=== PATIENT | male | born 1960 ===

== ENCOUNTER 2024-10-10 08:26 | Outpatient (AMB) | payer MEDICAID, SELFPAY ==
--- NOTE | 2024-10-10 08:27 | A.OFFVIS_ITS ---
Vital Signs 3 10/10/24 08:33 Height 6 ft 3 in Weight 218 lb 4 oz BMI 27.3 BP 113/63 Blood Pressure Location Lt brachial Position Sitting Pulse 97 Pulse Source Pulse Oximeter Pulse Oximetry (%) 97 Oxygen Delivery Method Room Air Intake Visit Reasons: Spinal Stenosis lumbar reg Intake Note: Pain today 03/14 It Sales Executive Required: Yes It Sales Executive Language: Addiction Nurse Name: Lynnette #[id number] Information Interpreted: non-clinical & clinical Accompanied by: Self / Same As Patient Allergies ibuprofen Adverse Reaction (Verified 10/10/24 08:31) Gastrointestinal Upset HPI HPI Spinal Stenosis lumbar reg: Details: The patient is a 63 year old Serbian speaking male presenting with back pain with symptoms primarily localized to the right side. Over the past year, he has experienced a progressively worsening electric shock-like pain that began after attempting physical therapy 3 months ago, reported as ineffective, and had to be discontinued. The condition is characterized by radiation to the right leg, causing numbness and spasms. It intensifies during certain physical activities, including lifting, long periods of sitting, changing positions, and driving, but does not affect the left side. Lumbar spine MRI showed degenerative changes of the lumbar spine and a small interiorly projecting extrusion at L4-L5 and mild-moderate left foraminal stenosis at L5-S1. Imaging views are not available for review today, patient completed MRI at [facility]. Past management efforts have seen limited success due to medication-induced side effects and the patient?s reluctance to try recommended injections due to familial experience. - Onset: Approximately one year ago. - Quality & Character: Electric shock-like, pinching, stabbing, aching, shooting, burning, sharp - Location: Lower back, radiating to the right leg. - Exacerbating Factors: Lifting, climbing, sitting for long periods, driving. - Relieving Factors: Tramadol (helps with pain and sleep). - Activities Interference: Driving, sleeping, physical stability. - Affect: Pain impacts stability and sleep, causing difficulty in daily functioning. - Analgesia: Gabapentin, Tylenol and tramadol (short one time script 04/14/24) have been used, with tramadol aiding sleep and pain reduction. - Adverse Effects: GI upset from NSAIDs and drowsiness from tramadol are reported. - Activities of Daily Living: Pain hinders activities like driving, prolonged sitting, changing from sitting to standing, and causes sleep disturbances. - Aberrant Drug Related Behaviors: No evidence of misuse, but cautious use of tramadol due to familial concerns. [facility] Medical History Smoker Primary insomnia COPD (chronic obstructive pulmonary disease) Mild intermittent asthma Chronic low back pain Arthropathy Social History Alcohol intake: never Patient Tobacco Use Status: Current everyday Tobacco user Tobacco use type: Cigarette Cigarette Packs Per Day: 0.5 Review of Systems Const Details: - Musculoskeletal: Reports radiating back pain to the right leg, numbness and pain in thigh. - Neurological: Reports right leg spasms and numbness. Denies bladder/bowel dysfunction or saddle anesthesia. - Gastrointestinal: Denies current issues except historical NSAID side effects. All systems reviewed & are unremarkable except as noted in HPI and below Physical Exam Vital Signs: Last Vital Signs Pulse 97 10/10/24 08:33 BP 113/63 10/10/24 08:33 Pulse Ox 97 10/10/24 08:33 Oxygen Delivery Method Room Air 10/10/24 08:33 BMI result Body Mass Index 27.3 General: Appears afebrile. Alert and oriented. Mood and affect appropriate. Follows and participates in conversation appropriately. Respiratory effort is unlabored. No cough. Able to transition from sit to stand unassisted. Ambulates with bilaterally normal heel strike and toe off. General: Yes no CVA tenderness Back/Spine/Pelvis Other: Lumbar ROM limited due to pain. Antalgic gait with limping due to right leg pain. Demonstrates 5/5 left and 4/5 right strength of quadriceps bilaterally as well as flexion/dorsiflexion of bilateral feet against resistance. 2+ pedal pulses bilaterally. Straight leg rise with dorsiflexion negative bilaterally. Reflexes WNL, sensation intact to light touch. Facet loading test positive bilaterally. Sofia sign, Miguel?s, Gaenslen, Pelvic compression and Stinchfield tests are positive on the right, equivocal on the left. Mild- moderate groin pain with right hip external rotations. Moderate TTP in the lateral and anterior aspects of right hip. Significant paraspinals tenderness mostly on the right/left side, thoracic/mid and lower back. Valsalva maneuver is negative. Back: no CVA tenderness Cervical Spine: normal cervical lordosis, cervical ROM normal and No Cervical spine tenderness Thoracic/Lumbar Spine: thoracic and lumbar spine normal to inspection, No Thoracic/lumbar spine scar(s), Lasegue's sign negative, straight leg raise negative bilaterally, pain with thoraco-lumbar ROM, paraspinal muscle tenderness on the right greater than left, thoraco-lumbar ROM limited, No thoracic spinal tenderness and lumbar spinal tenderness (L3-S1) Pelvis: buttock tenderness on the right and no sciatic notch tenderness Sacroiliac joints: bilaterally (right>left) tender to palpation Results Reviewed Results Reviewed: Assessment & Plan Assessment & Plan (1) Sacroiliac joint pain: Code(s): M53.3 - Sacrococcygeal disorders, not elsewhere classified Category: Medical (2) Right hip pain: Code(s): M25.551 - Pain in right hip Category: Medical (3) Chronic low back pain: Code(s): M54.50 - Low back pain, unspecified; G89.29 - Other chronic pain Category: Medical (4) Lumbosacral spondylosis: Code(s): M47.817 - Spondylosis without myelopathy or radiculopathy, lumbosacral region Category: Medical Plan Our plan involves further diagnostic evaluation of the sacroiliac and right hip regions, utilizing x-rays to determine the degree of arthritis, degenerative changes nd assess suitability for steroid vs diagnostic injections. For severe pain management, I prescribed tramadol cautiously, emphasizing non-dependent use and safety. We'll reassess once x-ray results are available, considering conservative management or possible interventional therapies based on findings. The patient was educated on opioid safety, including the use of Narcan as a precautionary measure. All questions and concerns have been answered and patient agreed with the plan. Follow up for xray Patient was informed and verbally consented to the use of an ambient scribe for clinic note documentation during this visit. Orders: Orders 2 XR hip RT w PEL1V Today M25.551 - Pain in right hip, M53.3 - Sacrococcygeal disorders, not elsewhere classified XR lumbar spine 4V min Today G89.29 - Other chronic pain, M47.817 - Spondylosis without myelopathy or radiculopathy, lumbosacral region, M54.50 - Low back pain, unspecified Medications: New 2 tramadol 50 mg PO BID 10 days PRN 20 tabs 0RF pain (scale score 7-10) G89.29 - Other chronic pain, M25.551 - Pain in right hip, M47.817 - Spondylosis without myelopathy or radiculopathy, lumbosacral region, M53.3 - Sacrococcygeal disorders, not elsewhere classified, M54.50 - Low back pain, unspecified naloxone 4 mg/actuation (Narcan) spray 1 dose into ONE nostril; alternate nostrils w each dose until help arrives 4 mg intranasal Q2M PRN 2 ea 0RF opioid overdose Patient Instructions: I engaged in a thorough discussion with the patient regarding his diagnosis of back pain with right leg symptoms, indicating possible right hip and sacroiliac joint involvement. I explained possible benefits and risks of hip and SI joint x-rays, and the limited use of tramadol to manage pain given his apprehension about injections influenced by familial advice. We covered opioid safety, reinforcing the importance of Narcan as a precaution. The patient was instructed on current pain management and future steps based on diagnostic findings. - Undergo hip and sacroiliac joint x-rays as scheduled. - Use tramadol only for severe pain or sleeplessness, never before driving. - Keep Narcan on hand when using tramadol and understand its emergency use. - Avoid any unnecessary physical strain or exacerbating activities for now. - Follow-up for a discussion of x-ray results and possible further intervention. - Contact us with any sudden changes in symptoms or concerns before the next visit. Coding Level of Care Code New Pt Level 4 (50167) Diagnoses Sacroiliac joint pain M53.3 Right hip pain M25.551 Chronic low back pain M54.50; G89.29 Lumbosacral spondylosis M47.817
[2024-10-10 08:33] VITALS: BP 113/63; PULSE 97; O2SAT 97; BMI 27.3
--- OUTSIDE RECORDS SUMMARY | 2024-10-10 08:48 | XMS_ITS | Encounter Summary ---
Author Organization [employer] Address [address] [place] [address] Care Team Providers Care New Order Clerk Name Role Phone Raissa Alanis MD Primary Care Provider [phone] Reason for Visit * Reason Onset Date Comments Letter for School/Work 05/04/2024 Encounter Details Date Type Department Care Team ([facility] Contact Info) Description 05/04/2024 Telephone [facility] MEDICINE [address] [place] [address] Raissa Alanis MD [address] [place], [place] [id number] Letter for School/Work Social History Tobacco Use Types Packs/Day Years Used Date Smoking Tobacco: Every Day Cigarettes 0.2 46.3 Started: 07/05/1978 Passive Smoke Exposure: Current Smokeless Tobacco: Never Depression Answer Date Recorded Patient Health Questionnaire-9 Score 0 12/18/2022 Housing Stability Answer Date Recorded What is your housing situation today? I have tootie garza 05/15/[address] you li ve. Do you have problems with any of the following? None of the above 05/15/2023 Food Insecurity Answer Date Recorded Within the past 12 months, y ou worried that your food would run out before you got money to buy more: Never True 05/15/2023 Within the past 12 months,th e food you bought just didn't last and you didn't have enough money to get more: Never True 05/2023 Transportation Answer Date Recorded In the past 12 months, has l ack of transportation kept you from medical appts, meetings, work or from getting things needed for daily living? No 05/15/2023 Utilities Answer Date Recorded In the past 12 months, has t he electric, gas, oil or water company threatened to shut off services in your home? No 05/15/2023 Depression Answer Date Recorded Patient Health Questionnaire-2 Score 0 12/18/2022 Sex and Gender Information Value Date Recorded Sex Assigned at Male 05/04/2022 10:24 AM EDT Legal Sex Male 10:24 AM EDT Gender Identity Male 06/05/2022 10:04 AM EST Sexual Orientation Straight 09/21/2022 10 :12 AM EDT documented as of this encounter Miscellaneous Notes * Telephone Encounter - Mariel Bolanos RN - 05/04/2024 1:48 PM EDT Pt walked in this afternoon requesting an appt to get clearance letter for employer. Pt states employer gave pt termination letter and is out of a job if clearance letter is not provided. Pt was out for LBP. Pt agrees to see PCP this afternoon after prior no show on 04/27/24 * Telephone Encounter - Pop Rodgers - 05/04/2024 12:09 PM EDT Tc from pt stating he needs a letter for work stating he is good to return to work. documented in this encounter Plan of Treatment Upcoming Encounters Date Type Department Care Team (Late st Contact Info) Description 12/20/2024 9:15 AM EDT Office Visit [facility] [address] [place] [address] Raissa Alanis MD [address] [place] [address] documented as of this encounter Visit Diagnoses Not on filedocumented in this encounter Additional Health Concerns Assessment Noted Time PHQ-9 Depression Total Score: 0 12/19/19 23 10:18 AM EDT documented as of this encounter Care Teams New Order Clerk Relationship Specialty Start Date End Date Raissa Alanis MD [address] [place] [address] PCP - General Family Medicine 12/30/17 documented as of this encounter
--- OUTSIDE RECORDS SUMMARY | 2024-10-10 08:48 | XMS_ITS | Encounter Summary ---
Author Organization [employer] Address [address] [place] [address] Care Team Providers Care Plant Machinist Name Role Phone Raissa Alanis MD Primary Care Provider [phone] Encounter Details Date Type Department Care Team ([facility] Contact Info) Description 04/10/2024 Orders Only [facility] [address], [place] [phone] Provider, MD Joanna Social History Tobacco Use Types Packs/Day Years [...] AM EDT documented as of this encounter Plan of Treatment Upcoming Encounters Date Type Department Care Team ([facility] st Contact Info) Description 12/20/2024 9:15 AM EDT Office Visit [facility] MED [facility] PEDS [address] [place] [address] Raissa Alanis MD [address] [place] [address] documented as of this encounter Procedures Procedure Name Priority Date/Time Associated Diagnosis Comments XR CERVICAL SPINE COMPLETE 4-5 VIEWS Routine 04/08/2024 3:40 PM EDT documented in this encounter Results * XR Cervical Spine Complete 4-5 Views (04/08/2024 3:40 PM EDT) Anatomical Region Laterality Modality Spine, C-spine Radiographic Iveth ging us Historical Provider MD AMAYA XR PROCEDURES Final R esult documented in this encounter Visit Diagnoses Not on filedocumented in this encounter Additional Health Concerns Assessment Noted Time PHQ-9 Depression Total Score: 0 12/19/19 23 10:18 AM EDT documented as of this encounter Care Teams Plant Machinist Relationship Specialty Start Date End Date Raissa Alanis MD [address] [place] [address] PCP - General Family Medicine 12/30/17 documented as of this encounter
--- OUTSIDE RECORDS SUMMARY | 2024-10-10 08:48 | XMS_ITS | Encounter Summary ---
Author Organization [facility] Address [address] [place] [address] Care Team Providers Care Wildland Fire Operations Specialist Name Role Phone Unavailable Primary Care Provider Unavailabl e Encounter Details Date Type Department Care Team (Latest Contact Info) Description 04/08/2024 9:00 AM EDT Hospital Encounter TH HISTORIC ENCOUNTERS [facility] CONVERSION ONLY Mariza Hdz MD [address] Other chronic pain Social History Tobacco Use Types Packs/Day Years Used Date Smoking Tobacco: Never Assessed Sex and Gender Information Value Date Recorded Sex Assigned at Not on file Legal Sex Male 2:15 PM EST Gender Identity Not on file Sexual Orientation Not on file documented as of this encounter Plan of Treatment Not on file documented as of this encounter Procedures Procedure Name Priority Date/Time Associated Diagnosis Comments CR SPINE CERVICAL MIN 4 VIEWS Routine 04/10/2024 7:49 AM EDT Other chronic pain documented in this encounter Results * CR SPINE CERVICAL MIN 4 VIEWS (04/10/2024 7:49 AM EDT) Anatomical Region Laterality Modality Radiographic Iveth ging 04/08/2024 9:08 AM EDT Narrative 04/10/2024 7:49 AM EDT [facility] Diagnostic Imaging Department [address] [place] [id number] Patient: ??INOCENCIO GAMBOA ?/Age/Sex: 1960 - 63 - M Unit#: ??[id number] ? Location/Status: ??SPDIGEN/REG CLI ? Mnemonic/Ordering Site: ??[facility]/SPDI Ordering Physician: ??MARIZA HDZ MD CR Spine Cervical Min 4 Views - 04/08/24 - 923 Report Status:Signed HISTORY: The patient is a 63-year-old male with chronic neck pain. No history of trauma is provided. FINDINGS: AP, lateral, open-mouth, and right and left oblique views of the cervical spine are obtained. The study demonstrates mild, grade 1, 2.4 mm posterior spondylolisthesis of C5 relative to C6, unchanged as compared to the prior study performed 06/16/2019. Again seen is straightening of the cervical lordosis consistent with muscle spasm. No fracture is seen. There is narrowing of the C4-5 and C5-6 disc spaces with adjacent osteophytes consistent with degenerative disc disease, progressive since the prior study. The remaining disc spaces are well-maintained. There is mild bony narrowing of the left C5-6 and C6-7 neural foramina, progressive since the prior study. The remaining neural foramina appear widely patent. There is no prevertebral soft tissue swelling. IMPRESSION: Grade 1, 2.4 mm posterior spondylolisthesis of C5 relative to C6, stable since 06/16/2019. Straightening of the cervical lordosis consistent with muscle spasm. Degenerative disc disease is present at the C4-5 and C5-6 levels, progressive since the prior study. There is mild bony narrowing of the left C5-6 and C6-7 neural foramina, progressive since the prior examination. Code 41842 Dictating Physician: ??ELIZABETH TRAN MD Electronically Signed by: ??ELIZABETH TRAN MD Dic Date/Time: ??04/10/24 0745 Sign date/Time: ??04/10/24 0749 Procedure Note Elizabeth Tran MD - 05/02/2024 [facility] Diagnostic Imaging Department [address] [place] [id number] Patient: COOPERINOCENCIO D.O.B./Age/Sex: 1960 - 63 - M Unit#: [id number] Location/Status: SPDIGEN/REG CLI Mnemonic/Ordering Site: [facility]/SP[facility] Ordering Physician: MARIZA HDZ MD CR Spine Cervical Min 4 Views - 04/08/[address] Report Status:Signed HISTORY: The patient is a 63-year-old male with chronic neck pain. Nohistory of trauma is provided. FINDINGS: AP, lateral, open-mouth, and right and left oblique views ofthe cervical spine are obtained. The study demonstrates mild, grade 1, 2.4mm posterior spondylolisthesis of C5 relative to C6, unchanged as compared tothe prior study performed 06/16/2019. Again seen is straightening of thecervical lordosis consistent with muscle spasm. No fracture is seen. There isnarrowing of the C4-5 and C5-6 disc spaces with adjacent osteophytes consistentwith degenerative disc disease, progressive since the prior study. Theremaining disc spaces are well-maintained. There is mild bony narrowing of the left C5-6and C6-7 neural foramina, progressive since the prior study. The remainingneural foramina appear widely patent. There is no prevertebral soft tissueswelling. IMPRESSION: Grade 1, 2.4 mm posterior spondylolisthesis of C5 relative toC6, stable since 06/16/2019. Straightening of the cervical lordosis consistentwith muscle spasm. Degenerative disc disease is present at the C4-5 and C5-6levels, progressive since the prior study. There is mild bony narrowing of theleft C5-6 and C6-7 neural foramina, progressive since the prior examination. Code 98077 Dictating Physician: ELIZABETH TRAN MD Electronically Signed by: ELIZABETH TRAN MD Dic Date/Time: 04/10/24 0745 Sign date/Time: 04/10/24 0749 us Mariza Hdz MD IMG XR PROCEDURES Final Res ult documented in this encounter Visit Diagnoses Diagnosis Other chronic pain documented in this encounter
--- OUTSIDE RECORDS SUMMARY | 2024-10-10 08:48 | XMS_ITS | Encounter Summary ---
Author Organization June [facility] Address [address] [place] [address] Care Team Providers Care Operating Room Nurse Name Role Phone Unavailable Primary Care Provider Unavailabl e Encounter Details Date Type Department Care Team (Latest Contact Info) Description 04/11/2024 8:56 AM EDT Hospital Encounter TH HISTORIC ENCOUNTERS EASTERN CONVERSION ONLY Mariza Hdz MD [address] Lumbago with sciatica, right side Social History Tobacco Use Types Packs/Day Years [...] Priority Date/Time Associated Diagnosis Comments CR SPINE LUMBAR 2 OR 3 VIEWS Routine 04/11/2024 9:41 AM EDT Lumbago with sciatica, right side CR HIP UNI 2-3 VIEWS RT Routine 04/11/2024 9:38 AM EDT Lumbago with sciatica, right side documented in this encounter Results * CR SPINE LUMBAR 2 OR 3 VIEWS (04/11/2024 9:41 AM EDT) Anatomical Region Laterality Modality Radiographic Iveth ging 04/11/2024 9:03 AM EDT Narrative 04/11/2024 9:41 AM EDT [facility] Diagnostic Imaging Department [address] [place] [id number] Patient: ??INOCENCIO GAMBOA ?/Age/Sex: 1960 - 63 - M Unit#: ??[id number] ? Location/Status: ??SPDIGEN/REG CLI ? Mnemonic/Ordering Site: ??SPINLUMLD/SPDI Ordering Physician: ??MARIZA HDZ MD CR Spine Lumbar 2 or 3 Views - 04/11/24 - 927 Report Status:Signed HISTORY: The patient is a 63-year-old male with right-sided back pain following a fall. FINDINGS: AP, lateral, and oblique views of the lumbosacral spine are obtained. The study demonstrates normal alignment of the bony structures. No fracture is seen. No osteolytic or osteoblastic lesion is demonstrated. L5 is again seen to be a transitional vertebra with possible pseudoarticulation of the enlarged transverse processes of L5 with the sacrum. There is narrowing of the L5-S1 disc space consistent with degenerative disc disease, progressive since the prior study performed 07/18/2014. The remaining disc spaces are well-maintained. Small degenerative osteophytes are present throughout the lumbar spine. IMPRESSION: No acute findings. Degenerative disc disease is present at L5-S1, progressive since 07/18/2014. L5 is a transitional vertebra. There is possible pseudoarticulation of the enlarged transverse processes of L5, with the adjacent sacrum. Code 80919 Dictating Physician: ??ELIZABETH TRAN MD Electronically Signed by: ??ELIZABETH TRAN MD Dic Date/Time: ??04/11/2438 Sign date/Time: ??04/11/24940 Procedure Note Elizabeth Tran MD - 05/02/2024 [facility] Diagnostic Imaging Department [address] [place] [id number] Patient: INOCENCIO GAMBOA /Age/Sex: 1960 - 63 - M Unit#: [id number] Location/Status: SPDIGEN/REG CLI Mnemonic/Ordering Site: SPINLUMLD/SPDI Ordering Physician: MARIZA HDZ MD CR Spine Lumbar 2 or 3 Views - 04/11/24927 Report Status:Signed HISTORY: The patient is a 63-year-old male with right-sided back painfollowing a fall. FINDINGS: AP, lateral, and oblique views of the lumbosacral spine areobtained. The study demonstrates normal alignment of the bony structures. Nofracture is seen. No osteolytic or osteoblastic lesion is demonstrated. L5 is againseen to be a transitional vertebra with possible pseudoarticulation of theenlarged transverse processes of L5 with the sacrum. There is narrowing of theL5-S1 disc space consistent with degenerative disc disease, progressive since theprior study performed 07/18/2014. The remaining disc spaces are well-maintained.Small degenerative osteophytes are present throughout the lumbar spine. IMPRESSION: No acute findings. Degenerative disc disease is present atL5-S1, progressive since 07/18/2014. L5 is a transitional vertebra. There ispossible pseudoarticulation of the enlarged transverse processes of L5, with theadjacent sacrum. Code 90324 Dictating Physician: ELIZABETH TRAN MD Electronically Signed by: ELIZABETH TRAN MD Dic Date/Time: 04/11/24937 Sign date/Time: 04/11/24940 us Mariza Hdz MD IMG XR PROCEDURES Final Res ult * CR HIP UNI 2-3 VIEWS RT (04/11/2024 9:38 AM EDT) Anatomical Region Laterality Modality Radiographic Iveth ging 04/11/2024 9:02 AM EDT Narrative 04/11/2024 9:38 AM EDT [facility] Diagnostic Imaging Department [address] [place] [address] Patient: ??INOCENCIO GAMBOA ?/Age/Sex: 1960 - 63 - M Unit#: ??[id number] ? Location/Status: ??SPDIGEN/REG CLI ? Mnemonic/Ordering Site: ??HIP2-3VWRT/SPDI Ordering Physician: ??MARIZA HDZ MD CR Hip Uni 2-3 Views RT - 04/11/24927 Report Status:Signed HISTORY: The patient is a 63-year-old male with right buttock pain 1 week following mild trauma. FINDINGS: AP radiographs of the pelvis, along with coned-down AP and external rotation-abduction views of the right hip, are obtained. The study demonstrates no fracture, dislocation, or osteolytic or osteoblastic lesion. There is mild narrowing of the right hip joint consistent with mild osteoarthritis. No soft tissue abnormality is seen. IMPRESSION: There is mild osteoarthritis of the right hip. Otherwise, normal examination. Code 66324 Dictating Physician: ??ELIZABETH TRAN MD Electronically Signed by: ??ELIZABETH TRAN MD Dic Date/Time: ??04/11/24936 Sign date/Time: ??04/11/24937 Procedure Note Elizabeth Tran MD - 05/02/2024 [facility] Diagnostic Imaging Department [address] [place] [address] Patient: COOPERINOCENCIO D.O.B./Age/Sex: 1960 - 63 - M Unit#: [id number] Location/Status: [facility] CLI Mnemonic/Ordering Site: [address]/[facility] Ordering Physician: MARIZA HDZ MD CR Hip Uni 2-3 Views RT - 04/11/24927 Report Status:Signed HISTORY: The patient is a 63-year-old male with right buttock pain 1week following mild trauma. FINDINGS: AP radiographs of the pelvis, along with coned-down AP andexternal rotation-abduction views of the right hip, are obtained. The studydemonstrates no fracture, dislocation, or osteolytic or osteoblastic lesion. There ismild narrowing of the right hip joint consistent with mild osteoarthritis. Nosoft tissue abnormality is seen. IMPRESSION: There is mild osteoarthritis of the right hip. Otherwise,normal examination. Code 21490 Dictating Physician: ELIZABETH TRAN MD Electronically Signed by: ELIZABETH TRAN MD Dic Date/Time: 04/11/24936 Sign date/Time: 04/11/24937 Mariza Hdz MD IMG XR PROCEDURES Final Res ult documented in this encounter Visit Diagnoses Diagnosis Lumbago with sciatica, right side documented in this encounter
--- OUTSIDE RECORDS SUMMARY | 2024-10-10 08:48 | XMS_ITS | Clinical Summary ---
Author Organization [facility] Address [address] [place] [address] Phone Care Team Providers Care Shipping And Receiving Weigher Name Role Phone Unavailable Primary Care Provider Unavailabl e Encounters Date Type Department Care Team Description 09/20/2024 5:59 PM EDT - 09/20/2024 11:59 PM EDT Hospital Encounter [facility] MRI [address] [place] [phone] Radiculopathy, lumbar region Discharge Disposition: Home or Self Care from Last 3 Months Social History Tobacco Use Types Packs/Day Years Used Date Smoking Tobacco: Never Assessed Sex and Gender Information Value Date Recorded Sex Assigned at Not on file Legal Sex Male 2:15 PM EST Gender Identity Not on file Sexual Orientation Not on file Plan of Treatment Health Maintenance Due Date Last Done Comments Pneumococcal Vaccine: 50+ Ye ars (1 of 2 - PCV) 1981 Pneumococcal Vaccine: Pediat rics (0 to 5 Years) and At-Risk Patients (6 to 64 Years) (1 of 2 - PCV) 1981 Zoster Vaccines (1 of 2) 2012 RSV Immunization Adult Patie nts (1 - Risk 60-74 years 1-dose series) 2022 COVID-19 Vaccine ( - 2023-2 5 season) 2024 Influenza Vaccine (#1) 2024 Colorectal Cancer Screening: Colonoscopy 04/28/2024 Depression Screening 04/28/2024 12/18/2022 HIV Screening 04/28/2024 Hepatitis C Screening 04/28/2024 Social Influencers of Health Screening 04/28/2024 Cholesterol Screening (Lipid Panel) 12/23/2027 12/22/2022 DTaP,Tdap,and Td Vaccines (2 - Td or Tdap) 02/28/2029 02/28/2019 HIB Vaccines Aged Out No longer eligi ble based on patient's age to complete this topic HPV Vaccines Aged Out No longer eligi ble based on patient's age to complete this topic Hepatitis A Vaccines Aged Out No long er eligible based on patient's age to complete this topic Hepatitis B Vaccines Aged Out No long er eligible based on patient's age to complete this topic IPV Vaccines Aged Out No longer eligi ble based on patient's age to complete this topic MMR Vaccines Aged Out No longer eligi ble based on patient's age to complete this topic Meningococcal ACWY Vaccine Aged Out N o longer eligible based on patient's age to complete this topic Meningococcal B Vaccine Aged Out No l onger eligible based on patient's age to complete this topic RSV Immunization Patients Un kimberlee 20 months Aged Out No longer eligible b ased on patient's age to complete this topic Varicella Vaccines Aged Out No longer eligible based on patient's age to complete this topic Procedures Procedure Name Priority Date/Time Associated Diagnosis Comments MR LUMBAR SPINE WO CONTRAST Routine 09/20/2024 7:04 PM EDT Radiculopathy, lumbar region from Last 3 Months Results * MR Lumbar Spine wo Contrast (09/20/2024 7:04 PM EDT) Anatomical Region Laterality Modality L-spine, Spine Magnetic Resonan ce 09/21/2024 8:23 AM EDT Impressions 09/21/2024 8:48 AM EDT Degenerative changes of the lumbar spine. ??The most significant findings are a small inferiorly projecting extrusion at L4-5 and mild--moderate left foraminal stenosis at L5-S1. -------- FINAL REPORT -------- Dictated By: Brad Hughes Dictated Date: 09/21/2024 08:23 ET Assigned Physician: Brad Hughes Reviewed and Electronically Signed By: Brad Hughes Signed Date: 09/21/2024 08:48 ET Workstation ID: [id number] Transcribed By: Self Edit Transcribed Date: 09/21/2024 08:23 ET Narrative 09/21/2024 8:48 AM EDT PROCEDURE: MRI of the lumbar spine without contrast. TECHNIQUE: Multiplanar multisequence MRI of the lumbar spine without intravenous contrast administration. HISTORY: radiculopathy COMPARISON: Radiographs dated 04/11/2024. FINDINGS: The paraspinous soft tissues are normal. Straightening of the typical lumbar lordosis. ??No concerning marrow infiltrative lesion. ??There is mild height loss at L5 related to mild deformities of both the superior and inferior endplate. ??There is no associated marrow edema. The conus is in a normal position at T12. Lumbar disc levels: L1-2: Only imaged in the sagittal plane. ??No significant disc or facet abnormality. ??No spinal or foraminal stenosis. L2-3: Minimal anterior endplate osteophytes. ??Small symmetric disc bulge. ??Minimal degenerative changes of the facet joints. ??No spinal or foraminal stenosis. L3-4: Small anterior endplate osteophytes. ??Minimal left central protrusion. ??Minimal degenerative irregularity of the facet joints. ??No spinal or foraminal stenosis. L4-5: Small anterior endplate osteophytes. ??Mild endplate irregularity. ??Small symmetric disc bulge with a superimposed small inferiorly projecting central extrusion. ??Mild bilateral facet arthropathy, with slight widening of the facet joints suggesting hypermobility. ??Mild left greater than right lateral recess stenosis. ??No spinal or foraminal stenosis. L5-S1: Mild disc space height loss and endplate irregularity. ??Small anterior endplate osteophytes. ??Small broad-based left central and foraminal protrusion with minimal associated endplate osteophytes. ??Slight widening of the facet joints suggesting mild hypermobility. ??Mild-moderate left foraminal stenosis. ??No spinal stenosis. Procedure Note Brad Hughes MD - 09/21/2024 PROCEDURE: MRI of the lumbar spine without contrast. TECHNIQUE: Multiplanar multisequence MRI of the lumbar spine withoutintravenous contrast administration. HISTORY: radiculopathy COMPARISON: Radiographs dated 04/11/2024. FINDINGS: The paraspinous soft tissues are normal. Straightening of the typical lumbar lordosis. No concerning marrowinfiltrative lesion. There is mild height loss at L5 related to milddeformities of both the superior and inferior endplate. There is noassociated marrow edema. The conus is in a normal position at T12. Lumbar disc levels: L1-2: Only imaged in the sagittal plane. No significant disc or facetabnormality. No spinal or foraminal stenosis. L2-3: Minimal anterior endplate osteophytes. Small symmetric disc bulge.Minimal degenerative changes of the facet joints. No spinal or foraminalstenosis. L3-4: Small anterior endplate osteophytes. Minimal left centralprotrusion. Minimal degenerative irregularity of the facet joints. Nospinal or foraminal stenosis. L4-5: Small anterior endplate osteophytes. Mild endplate irregularity.Small symmetric disc bulge with a superimposed small inferiorly projectingcentral extrusion. Mild bilateral facet arthropathy, with slight wideningof the facet joints suggesting hypermobility. Mild left greater thanright lateral recess stenosis. No spinal or foraminal stenosis. L5-S1: Mild disc space height loss and endplate irregularity. Smallanterior endplate osteophytes. Small broad-based left central andforaminal protrusion with minimal associated endplate osteophytes. Slightwidening of the facet joints suggesting mild hypermobility. Mild-moderateleft foraminal stenosis. No spinal stenosis. IMPRESSION: Degenerative changes of the lumbar spine. The most significant findingsare a small inferiorly projecting extrusion at L4-5 and mild--moderateleft foraminal stenosis at L5-S1. -------- FINAL REPORT -------- Dictated By: Brad Hughes Dictated Date: 09/21/2024 08:23 ET Assigned Physician: Brad Hughes Reviewed and Electronically Signed By: Brad Hughes Signed Date: 09/21/2024 08:48 ET Workstation ID: [id number] Transcribed By: Self Edit Transcribed Date: 09/21/2024 08:23 ET Raissa Alanis MD IMG MRI PROCEDURES Final Resu lt from Last 3 Months
--- OUTSIDE RECORDS SUMMARY | 2024-10-10 08:48 | XMS_ITS | Clinical Summary ---
Author Organization [employer] Address [address] [facility] [address] [place] [address] Care Team Providers Care Lay Up Operator Name Role Phone Raissa Alanis MD Primary Care Provider [phone] Allergies Active Allergy Reactions Criticality Noted Date Comments Ibuprofen 06/17/2016 Other reaction(s): GI Problems Medications mirtazapine (Remeron) 15 MG tablet TAKE ONE TABLET AT BEDTIME DIRECTED 06/01/20 22 Active SM Lubricating Tears 0.4-0.3 % solution PLACE ONE DROP IN EACH EYE FOUR TIMES DAILY NEEDED 07/31/19 22 Active albuterol (ProAir HFA) 108 (90 Base) MCG/ACT inhaler Inhale 2 puffs. 04/14/20 22 Active Flovent HFA 110 MCG/ACT inhaler INHALE TWO PUFFS TWICE DAILY, RINSE MOUTH AFTER USE 03/30/20 22 Active Propylene Glycol-Glyceri n 1-0.3 % solution Use QID prn to both eyes 05/02/20 21 Active traZODone (Desyrel) 50 MG tablet TAKE ONE TABLET AT BEDTIME WITH FOOD 06/01/20 22 Active capsicum (Zostrix) 0.075 % topical cream Apply topically every 8 (eight) hours. 04/17/20 16 Active mirtazapine (Remeron) 15 MG tablet TAKE ONE TABLET AT BEDTIME DIRECTED 30 tablet 5 12/16/19 23 Active atorvastatin (Lipitor) 40 MG tablet Take 1 tablet (40 mg) by mouth in the morning. 30 tablet 11 12/24/19 23 Active mirtazapine (Remeron) 15 MG tablet TAKE ONE TABLET AT BEDTIME 30 tablet 12/21/19 24 Active Flovent HFA 110 MCG/ACT inhaler INHALE TWO PUFFS BY MOUTH EVERY TWELVE HOURS. RINSE MOUTH AFTER USE 12 g 11 03/22/20 24 Active fluticasone furoate (Arnuity Ellipta) 200 MCG/ACT inhaler Inhale 1 puff Once per day. Rinse mouth with water after use to reduce aftertaste and incidence of candidiasis. Do not swallow. 1 each 11 03/23/20 24 025 Active acetaminophen (Tylenol 8 Hour) 650 MG ER tablet Take 1 tab orally tid prn pain 90 tablet 2 05/04/20 24 Active albuterol (Ventolin HFA) 108 (90 Base) MCG/ACT inhaler INHALE TWO PUFFS EVERY 4 TO 6 HOURS NEEDED 18 g 1 08/03/19 25 Active gabapentin (Neurontin) 100 MG capsule 1 capsule at bedtime 30 capsule 1 09/14/19 25 Active traZODone (Desyrel) 50 MG tablet TAKE ONE TABLET BY MOUTH AT BEDTIME 30 tablet 3 09/30/19 25 Active tiZANidine (Zanaflex) 4 MG tablet TAKE 1 TABLET BY MOUTH EVERY 8 HOURS FOR UP TO 7 DAYS 21 tablet 05/03/20 24 025 Discontinued(In effective) traZODone (Desyrel) 50 MG tablet Take 1 tablet (50 mg) by mouth at bedtime. 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 Chronic low back pain 04/17/2016 Assessment & Plan (04/24/2024 11:41 PM EDT): Will send a short course of oral predinisone and tramadol, continue muscle relaxant, er precautions reviewed, avoid heavy lifting, may apply cold pads Mild intermittent asthma 04/17/2016 Encounters Date Type Department Care Team Description 09/29/2024 Refill [facility] [address] [place] [address] Raissa Alanis MD 09/22/2024 Orders Only [facility] [address] [place] [address] Raissa Alanis MD Spinal stenosis of lumbar region, unspecified whether neurogenic claudication present (Primary Dx) 09/22/2024 Telephone [facility] [address] [place] [address] Raissa Alanis MD Results 09/15/2024 Population Health Risk Score Community [facility] ([facility] Department [address] [place] [phone] Provider, Population Health Generic 09/13/2024 9:30 AM EDT Office Visit [facility] [address] [place] [address] Raissa Alanis MD Lumbar disc disease with radiculopathy (Primary Dx) 09/13/2024 Travel 08/02/2024 Refill [facility] [address] [place] [address] Raissa Alanis MD from Last 3 Months Immunizations Name Administration Dates Next Due Tdap 02/28/2019 Social History Tobacco Use Types Packs/Day Years Used Date Smoking Tobacco: Every Day Cigarettes 0.2 46.3 Started: 07/05/1978 Passive Smoke Exposure: Current Smokeless Tobacco: Never Tobacco Cessation:Ready to Q uit: Not Asked; Counseling Given: Not Answered Depression Answer Date Recorded Patient Health Questionnaire-9 [...] Orientation Straight 09/21/2022 10 :12 AM EDT Last Filed Vital Signs Vital Sign Reading Time Taken Comments Blood Pressure 109/76 09/13/2024 9:48 AM EDT Pulse 65 09/13/2024 9:48 AM EDT Temperature 36.1 ??C (97 ??F) 09/13/2024 9:48 AM EDT Respiratory Rate 20 09/13/2024 9:48 AM EDT Oxygen Saturation 99% 09/13/2024 9:48 AM EDT Inhaled Oxygen Concentration - - Weight 96.6 kg (213 lb) 09/13/2024 9:48 AM EDT Height 190.5 cm (6' 3 ) 09/13/2024 9:48 AM EDT Body Mass Index 26.62 09/13/2024 9:48 AM EDT Plan of Treatment Upcoming Encounters Date Type Department Care Team (Late st Contact Info) Description 12/20/2024 9:15 AM EDT Office Visit [facility] [address] [place] [address] Raissa Alanis MD [address] [place] [address] Health Maintenance Due Date Last Done Comments CT Colonography 1960 Colonoscopy 1960 Colorectal Cancer Screening 1960 FIT DNA/Cologuard 1960 FIT 1960 FOBT 1960 HIV Screening 1960 Sigmoidoscopy 1960 Alcohol/Substance Use Screening 1974 Hepatitis C Screening 1980 Pneumococcal Vaccine: 50+ Years (1 of 2 - PCV) 1981 Zoster Vaccines (1 of 2) 2012 RSV Patients and Patients Aged 60 years or older (1 - Risk 60-74 years 1-dose series) 2022 Depression Screening 12/19/2023 12/18/2022, 12/18/2022 SDOH Screening 12/19/2023 12/18/2022 COVID-19 Vaccine (1 - 2023-2 5 season) 2024 Influenza Vaccine (#1) 2024 Tobacco Screening 09/13/2025 09/13/2024 Lipid Panel 12/23/2027 12/22/2022 DTaP/Tdap/Td Vaccines (2 - T d or Tdap) 02/28/2029 02/28/2019 HIB Vaccines Aged [...] patient's age to complete this topic Meningococcal Vaccine Aged Out No marilyn antonina eligible based on patient's age to complete this topic RSV under 20 months Aged Out No longe r eligible based on patient's age to complete this topic Rotavirus Vaccines Aged Out No longer eligible based on patient's age to complete this topic Procedures Procedure Name Priority Date/Time Associated Diagnosis Comments MR LUMBAR SPINE WO CONTRAST Routine 09/20/2024 Lumbar disc disease with radiculopathy LIPID PANEL, STANDARD Routine 12/22/2022 8:39 AM EDT Preventive measure from Last 3 Months or Most Recently Relevant to Health Maintenance Results * MR Lumbar Spine w/o Contrast (09/20/2024) Anatomical Region Laterality Modality Spine, L-spine Magnetic Resonan ce us Raissa Alanis MD [facility] [place] PROCEDURES Final Resu lt * (ABNORMAL) Lipid Panel, Standard (12/22/2022 8:39 AM EDT) Cholesterol, Total 242(H) <200 mg/dL [facility] HDL Cholesterol 33(L) > OR = 40 mg/dL [facility] Triglycerides 247(H) <150 mg/dL [facility] Comment: If a non-fasting specimen was collected, consider repeat triglyceride testing on a fasting specimen if clinically indicated. Jeanne et al. J. of Clin. Lipidol. 2015;9:129-169. LDL Cholesterol 167(H) mg/dL (calc) [facility] Comment: Reference range: <100 Desirable range <100 mg/dL for primary prevention; ?? <70 mg/dL for patients with CHD or diabetic patients with > or = 2 CHD risk factors. LDL-C is now calculated using the Flex-Barrios calculation, which is a validated novel method providing better accuracy than the Friedewald equation in the estimation of LDL-C. Flex SS et al. ERNIE. 2013;310(19): 0958-4434 (http://education.Preparis/faq/NTA477) Chol/HDLC Ratio 7.3(H) <5.0 (calc) [facility] Non-HDL Cholesterol 209(H) <130 mg/dL (calc) [facility] Comment: For patients with diabetes plus 1 major ASCVD risk factor, treating to a non-HDL-C goal of <100 mg/dL (LDL-C of <70 mg/dL) is considered a therapeutic option. Blood Venous blood specimen / Unknown 12/22/2022 8:39 AM EDT 12/22/2022 8:40 AM EDT Narrative [facility] - 12/23/2022 8:29 AM EDT FASTING:YES FASTING: YES us Raissa Alanis MD LAB BLOOD ORDERABLES Final Re sult [facility] [address], [place] [address] [facility] [address] [place] [address] from Last 3 Months or Most Recently Relevant to Health Maintenance Insurance [facility] [address] [place] [address] [place] [id number] [place] [id number] Care Teams Lay Up Operator Relationship Specialty Start Date End Date Raissa Alanis MD [address] [place] [address] [place] [id number] PCP - General Family Medicine 12/30/17
== END 2024-10-10 09:06 | disposition home or self-care (01) ==
LOC: HO.PMC 08:26
PROVIDERS: PCP Pediatrics; Referring Provider Pediatrics; Visit Provider Nurse Practitioner Family
DX: M53.3 Sacrococcygeal disorders, not elsewhere classified (principal); M25.551 Pain in right hip; M54.50 Low back pain, unspecified; G89.29 Other chronic pain; M47.817 Spondylosis without myelopathy or radiculopathy, lumbosacral region
CPT/HCPCS: 99204

== ENCOUNTER → 2024-10-10 08:26 | Outpatient (BNVA) | payer MEDICAID, SELFPAY | PROVIDERS: PCP Pediatrics; Referring Provider Pediatrics; Visit Provider Nurse Practitioner Family | DX: M53.3 Sacrococcygeal disorders, not elsewhere classified (principal); M25.551 Pain in right hip; G89.29 Other chronic pain; M47.817 Spondylosis without myelopathy or radiculopathy, lumbosacral region | CPT/HCPCS: 99212 ==

== ENCOUNTER 2024-10-11 08:15 | Outpatient (REF) | payer MEDICAID, SELFPAY ==
--- NOTE | ~2024-10-11 | XR_ITS ---
EXAMINATION: XR HIP, RIGHT CLINICAL INFORMATION: M53.3 - Sacrococcygeal disorders, not elsewhere classified COMPARISON: None available. TECHNIQUE: AP pelvis, 2 views of the right hip. FINDINGS: No fracture. Alignment is anatomic. Hip joint space is maintained. Femoral head is normal in contour. No evidence of AVN. Normal acetabular coverage. Soft tissues are unremarkable. XR/XR hip RT w [id number] IMPRESSION: Normal right hip. Electronically signed by: Nate Mccullough MD 10/11/2024 08:45 AM EDT
--- NOTE | ~2024-10-11 | XR_ITS ---
EXAMINATION: XR LUMBOSACRAL SPINE CLINICAL INFORMATION: M54.50 - Low back pain, unspecified COMPARISON: None available. TECHNIQUE: 6 views of the lumbar spine, inclusive of bilateral oblique views, were obtained. FINDINGS: There is a gentle right convex thoracolumbar scoliosis, apex at L1. There is a normal lordosis. Alignment is normal without subluxation. There is no compression deformity, fracture, or suspicious bone lesion. Mild diffuse degenerative disc changes are present, with moderate changes at L5-S1. Normal facet alignment. Mild to moderate degenerative facet changes present at L4-S1. No evidence of pars defects on oblique views. The sacrum and SI joints appear normal. There is no soft tissue abnormality. XR/XR lumbar spine 4V min IMPRESSION: 1. No acute bony abnormalities. 2. Mild lumbar spondylosis most significant at L5-S1. Electronically signed by: Nate Mccullough MD 10/11/2024 08:51 AM EDT
--- OUTSIDE RECORDS SUMMARY | 2024-10-11 08:25 | XMS_ITS | Encounter Summary ---
Author Organization [employer] Address [address] [facility] [address] [place] [address] Care Team Providers Care Service Team Leader Name Role Phone Raissa Alanis MD Primary Care Provider [phone] Reason for Visit * Reason Onset Date Comments Letter for School/Work 05/04/2024 Encounter Details Date Type Department Care Team ([facility] Contact Info) Description 05/04/2024 Telephone [facility] [address] [place] [address] Raissa Alanis MD [address] [place], [place] [phone] Letter for School/Work Social History Tobacco Use Types Packs/Day Years Used Date Smoking Tobacco: Every Day Cigarettes 0.3 46.3 Started: 07/05/1978 Passive Smoke Exposure: Current [...] Description 12/20/2024 9:15 AM EDT Office Visit [facility] [address] [place] [address] Raissa Alanis MD [address] [place] [address] documented as of this encounter Visit Diagnoses Not on filedocumented in this encounter Additional Health Concerns Assessment Noted Time PHQ-9 Depression Total Score: 0 12/19/19 23 10:18 AM EDT documented as of this encounter Care Teams Service Team Leader Relationship Specialty Start Date End Date Raissa Alanis MD [address] [place] [address] PCP - General Family Medicine 12/30/17 documented as of this encounter
--- OUTSIDE RECORDS SUMMARY | 2024-10-11 08:25 | XMS_ITS | Clinical Summary ---
Author Organization [employer] Address [address] [facility] 7t [place] [address] Care Team Providers Care Supervisor Wire Rope Fabrication Name Role Phone Raissa Alanis MD Primary Care Provider [phone] Allergies Active Allergy Reactions Criticality Noted Date [...] NEEDED 18 g 1 08/03/19 25 Active traZODone (Desyrel) 50 MG tablet TAKE ONE TABLET BY MOUTH AT BEDTIME 30 tablet 3 09/30/19 25 Active gabapentin (Neurontin) 300 MG capsule Take 1 capsule (300 mg) by mouth 2 times daily. 60 capsule 3 10/11/19 25 026 Active tiZANidine (Zanaflex) 4 MG tablet TAKE 1 TABLET BY MOUTH EVERY 8 HOURS FOR UP TO 7 DAYS 21 tablet 05/03/20 24 025 Discontinued(In effective) traZODone (Desyrel) 50 MG tablet Take 1 tablet (50 mg) by mouth at bedtime. 30 tablet 05/03/20 24 025 Discontinued gabapentin (Neurontin) 100 MG capsule 1 capsule at bedtime 30 capsule 1 09/14/19 25 025 Discontinued Active Problems Problem Noted Date [...] Encounters Date Type Department Care Team Description 10/10/2024 Orders Only [facility] MED & PEDS [address] [place] [address] Raissa Alanis MD 10/10/2024 Telephone [facility] MED & PEDS [address] [place] [address] Raissa Alanis MD 09/29/2024 Refill [facility] MED [facility] PEDS [address] [place] [address] Raissa Alanis MD 09/22/2024 Orders Only [facility] MED [facility] PEDS [address] [place] [address] Raissa Alanis MD Spinal stenosis of lumbar region, unspecified whether neurogenic claudication present (Primary Dx) 09/22/2024 Telephone [facility] MED & PEDS [address] [place] [address] Raissa Alanis MD Results 09/15/2024 Population Health Risk Score [facility] () [address] [phone] Provider, Population Health Generic 09/13/2024 9:30 AM EDT Office Visit [facility] MED & PEDS [address] [place] [address] Raissa Alanis MD Lumbar disc disease with radiculopathy (Primary Dx) 09/13/2024 Travel 08/02/2024 Refill [facility] MED & PEDS [address] [place] [address] Raissa Alanis MD from Last 3 Months [...] Description 12/20/2024 9:15 AM EDT Office Visit [facility] MED & PEDS [address] [place], [place] [phone] Raissa Alanis MD [address] [place] [address] Health Maintenance Due Date Last Done Comments [...] Laterality Modality Spine, L-spine Magnetic Resonan ce Raissa Alanis MD IMG MRI PROCEDURES Final Resu lt * (ABNORMAL) Lipid Panel, Standard (12/22/2022 8:39 AM EDT) Cholesterol, Total 242(H) <200 mg/dL [facility] [place] [facility] HDL Cholesterol 33(L) > OR = 40 mg/dL [facility] [place] [facility] Triglycerides 247(H) <150 mg/dL [facility] [place] [facility] Comment: If a non-fasting specimen was collected, consider repeat triglyceride testing on a fasting specimen if clinically indicated. Jeanne et al. J. of Clin. Lipidol. 2015;9:129-169. LDL Cholesterol 167(H) mg/dL (calc) [facility] [place] [facility] Comment: Reference range: <100 Desirable range <100 mg/dL for primary prevention; ?? <70 mg/dL for patients with CHD or diabetic patients with > or = 2 CHD risk factors. LDL-C is now calculated using the Flex-Barrios calculation, which is a validated novel method providing better accuracy than the Friedewald equation in the estimation of LDL-C. Flex SS et al. ERNIE. 2013;310(19): 3635-6999 (http://education.[employer]/faq/LOX539) Chol/HDLC Ratio 7.3(H) <5.0 (calc) [facility] [place] [facility] Non-HDL Cholesterol 209(H) <130 mg/dL (calc) [facility] [place] [facility] Comment: For patients with diabetes plus 1 major ASCVD risk factor, treating to a non-HDL-C goal of <100 mg/dL (LDL-C of <70 mg/dL) is considered a therapeutic option. Blood Venous blood specimen / Unknown 12/22/2022 8:39 AM EDT 12/22/2022 8:40 AM EDT Narrative [facility] - 12/23/2022 8:29 AM EDT FASTING:YES FASTING: YES Raissa Alanis MD LAB BLOOD ORDERABLES Final Re sult [facility] [address] [facility], [place] [address] [facility] [address] [place] [address] from Last 3 Months or Most Recently Relevant to Health Maintenance Insurance Care Teams Supervisor [employer] Rope Fabrication Relationship Specialty Start Date End Date Raissa Alanis MD [address] [place], [place] [address] [address] PCP - General Family Medicine 12/30/17
--- OUTSIDE RECORDS SUMMARY | 2024-10-11 08:25 | XMS_ITS | Encounter Summary ---
Author Organization [employer] Address [address] [facility] 7t [place] [address] Care Team Providers Care Showroom Consultant Name Role Phone Raissa Alanis MD Primary Care Provider [phone] Encounter Details Date Type Department Care Team ([facility] Contact Info) Description 04/10/2024 Orders Only [facility] [address] [place], [place] [phone] Provider, MD Joanna Social History Tobacco Use [...] Upcoming Encounters Date Type Department Care Team ([facility] st Contact Info) Description 12/20/2024 9:15 AM EDT Office Visit [facility] MED & PEDS [address] [place] [address] Raissa Alanis MD [address] [place] [address] documented as of this encounter Procedures Procedure [...] documented as of this encounter Care Teams Showroom Consultant Relationship Specialty Start Date End Date Raissa Alanis MD [address] [place] [address] PCP - General Family Medicine 12/30/17 documented as of this encounter
--- OUTSIDE RECORDS SUMMARY | 2024-10-11 08:25 | XMS_ITS | Encounter Summary ---
Author Organization [facility] Address [address] [place] [address] Care Team Providers Care Osteopathic Physician Name Role Phone Unavailable Primary Care Provider Unavailabl e Encounter Details Date Type Department Care Team (Latest Contact Info) Description 04/08/2024 9:00 AM EDT Hospital Encounter TH HISTORIC ENCOUNTERS EASTERN CONVERSION ONLY Mariza Hdz MD [address] Other chronic pain Social History Tobacco [...] AM EDT Narrative 04/10/2024 7:49 AM EDT [facility] Diagnostic Imaging Department [address] [place] [address] Patient: ??INOCENCIO GAMBOA ?/Age/Sex: 1960 - 63 - M Unit#: ??[id number] ? Location/Status: ??SPDIGEN/REG CLI ? Mnemonic/Ordering Site: [...] foramina, progressive since the prior examination. Code 56476 Dictating Physician: ??ELIZABETH TRAN MD Electronically Signed by: ??ELIZABETH TRAN MD Dic Date/Time: ??04/10/24 0745 Sign date/Time: ??04/10/24 0749 Procedure Note Elizabeth Tran MD - 05/02/2024 [facility] Diagnostic Imaging Department [address] [place] [address] Patient: COOPERINOCENCIO D.O.B./Age/Sex: 1960 - 63 - M Unit#: [id number] Location/Status: SPDIGEN/REG CLI Mnemonic/Ordering Site: SPINCER/SPDI Ordering [...] foramina, progressive since the prior examination. Code 69655 Dictating Physician: ELIZABETH TRAN MD Electronically Signed by: ELIZABETH TRAN MD Dic Date/Time: 04/10/24 0745 Sign date/Time: 04/10/24 0749 us Mariza Hdz MD IMG XR PROCEDURES Final Res ult documented in this encounter Visit Diagnoses Diagnosis Other chronic pain documented in this encounter
--- OUTSIDE RECORDS SUMMARY | 2024-10-11 08:25 | XMS_ITS | Encounter Summary ---
Author Organization [employer] Address [address] [facility] 7t [place] [address] Care Team Providers Care Dye House Worker Name Role Phone Raissa Alanis MD Primary Care Provider [phone] Encounter Details Date Type Department Care Team ([facility] Contact Info) Description 10/10/2024 Orders Only [facility] CHC MED & PEDS [address] [place], [place] [phone] Raissa Alanis MD [address] [place], [place] [phone] Social History Tobacco Use Types Packs/Day Years [...] [facility] MED & PEDS [address] [place] [address] Raissa Alanis MD [address] [place] [address] documented as of this encounter Visit Diagnoses Not on filedocumented in this encounter Additional Health Concerns Assessment Noted Time PHQ-9 Depression Total Score: 0 12/19/19 23 10:18 AM EDT documented as of this encounter Care Teams Dye House Worker Relationship Specialty Start Date End Date Raissa Alanis MD [address] [place] [address] PCP - General Family Medicine 12/30/17 documented as of this encounter
--- OUTSIDE RECORDS SUMMARY | 2024-10-11 08:25 | XMS_ITS | Encounter Summary ---
Author Organization [facility] Address [address] [place] [address] Care Team Providers Care Petroleum Laboratory Technician Name Role Phone Unavailable Primary Care Provider Unavailabl e Encounter Details Date Type Department Care Team (Latest Contact Info) Description 04/11/2024 8:56 AM EDT Hospital Encounter TH HISTORIC ENCOUNTERS EASTERN CONVERSION ONLY Mariza Hdz MD [address] Lumbago with sciatica, right side Social [...] AM EDT Narrative 04/11/2024 9:41 AM EDT [facility] Diagnostic Imaging Department [address] [place] [address] Patient: ??INOCENCIO GAMBOA ?/Age/Sex: 1960 - 63 - M Unit#: ??[id number] ? Location/Status: ??SPDIGEN/REG CLI ? Mnemonic/Ordering Site: [...] of L5, with the adjacent sacrum. Code 73334 Dictating Physician: ??ELIZABETH TRAN MD Electronically Signed by: ??ELIZABETH TRAN MD Dic Date/Time: ??04/11/2438 Sign date/Time: ??04/11/24940 Procedure Note Elizabeth Tran MD - 05/02/2024 [facility] Diagnostic Imaging Department [address] [place] [address] Patient: INOCENCIO GAMBOA /Age/Sex: 1960 - 63 - M Unit#: [id number] Location/Status: SPDIGEN/REG CLI Mnemonic/Ordering Site: SPINLUMLD/SPDI Ordering [...] processes of L5, with theadjacent sacrum. Code 20910 Dictating Physician: ELIZABETH TRAN MD Electronically Signed by: ELIZABETH TRAN MD Dic Date/Time: 04/11/24937 Sign date/Time: 04/11/24940 us Mariza Hdz MD IMG XR PROCEDURES Final Res ult * CR HIP UNI 2-3 VIEWS RT (04/11/2024 9:38 AM EDT) Anatomical Region Laterality Modality Radiographic Iveth ging 04/11/2024 9:02 AM EDT Narrative 04/11/2024 9:38 AM EDT [facility] Diagnostic Imaging Department [address] [place] [address] Patient: ??INOCENCIO GAMBOA ?/Age/Sex: 1960 - 63 - M Unit#: ??[id number] ? Location/Status: ??SPDIGEN/REG CLI ? Mnemonic/Ordering Site: [...] the right hip. Otherwise, normal examination. Code 23655 Dictating Physician: ??ELIZABETH TRAN MD Electronically Signed by: ??ELIZABETH TRAN MD Dic Date/Time: ??04/11/24936 Sign date/Time: ??04/11/24937 Procedure Note Elizabeth Tran MD - 05/02/2024 [facility] Diagnostic Imaging Department [address] [place] [address] Patient: COOPERINOCENCIO D.O.B./Age/Sex: 1960 - 63 - M Unit#: [id number] Location/Status: [facility] CLI Mnemonic/Ordering Site: [address]/[facility] Ordering Physician: MARIZA HDZ MD CR Hip [...] of the right hip. Otherwise,normal examination. Code 26365 Dictating Physician: ELIZABETH TRAN MD Electronically Signed by: ELIZABETH TRAN MD Dic Date/Time: 04/11/24936 Sign date/Time: 04/11/24937 Mariza Hdz MD IMG XR PROCEDURES Final Res ult documented in this encounter Visit Diagnoses Diagnosis Lumbago with sciatica, right side documented in this encounter
--- OUTSIDE RECORDS SUMMARY | 2024-10-11 08:25 | XMS_ITS | Clinical Summary ---
Author Organization [facility] Address [address] [place] [address] Phone Care Team Providers Care Business Development Coordinator Name Role Phone Unavailable Primary Care Provider Unavailabl e Encounters Date Type Department Care Team Description 09/20/2024 5:59 PM EDT - 09/20/2024 11:59 PM EDT Hospital Encounter [facility] MRI [address] [place] [phone] Radiculopathy, lumbar region Discharge Disposition: Home or [...] Signed Date: 09/21/2024 08:48 ET Workstation ID: [id number] Transcribed By: Self Edit Transcribed Date: 09/21/2024 [...] stenosis. ??No spinal stenosis. Procedure Note Brad uHghes MD - 09/21/2024 PROCEDURE: MRI of the [...] Signed Date: 09/21/2024 08:48 ET Workstation ID: [id number] Transcribed By: Self Edit Transcribed Date: 09/21/2024 08:23 ET Raissa Alanis MD IMG MRI PROCEDURES Final Resu lt from Last 3 Months
--- OUTSIDE RECORDS SUMMARY | 2024-10-11 08:25 | XMS_ITS | Encounter Summary ---
Author Organization [employer] Address [address] [facility] 7t [place] [address] Care Team Providers Care Vice President Talent Management Name Role Phone Raissa Alanis MD Primary Care Provider [phone] Encounter Details Date Type Department Care Team ([facility] Contact Info) Description 10/10/2024 Telephone [facility] CHC MED & PEDS [address] [place], [place] [phone] Raissa Alanis MD [address] [place] [address] Social History Tobacco Use Types Packs/Day Years [...] encounter Miscellaneous Notes * Telephone Encounter - Alyce Flores RN - 10/10/2024 1:17 PM EDT Notified patient that provider increase dose and frequency of Gabapentin. Informed patient that provider would like that try this intervention before prescribing an alternative. Patient agreed with the plan and will pick medication at pharmacy. * Telephone Encounter - Alyce Flores RN - 10/10/2024 9:29 AM EDT Patient walk-in to office stating Gabapentin 100 mg is not working for him and requesting another medication. Will route to provider for recommendations. documented in this encounter Plan of Treatment Upcoming Encounters Date Type Department Care Team (Late st Contact Info) Description 12/20/2024 9:15 AM EDT Office Visit [facility] MED & PEDS [address] [place] [address] Raissa Alanis MD [address] [place] [address] documented as of this encounter Visit Diagnoses Not on filedocumented in this encounter Additional Health Concerns Assessment Noted Time PHQ-9 Depression Total Score: 0 12/19/19 23 10:18 AM EDT documented as of this encounter Care Teams Vice President Talent Management Relationship Specialty Start Date End Date Raissa Alanis MD [address] [place] [address] PCP - General Family Medicine 12/30/17 documented as of this encounter
== END 2024-10-11 08:16 | disposition home or self-care (01) ==
LOC: HO.XRAY 08:15
PROVIDERS: PCP Pediatrics; Visit Provider Nurse Practitioner Family
DX: M53.3 Sacrococcygeal disorders, not elsewhere classified (principal); M25.551 Pain in right hip; M54.50 Low back pain, unspecified; G89.29 Other chronic pain; M47.817 Spondylosis without myelopathy or radiculopathy, lumbosacral region
CPT/HCPCS: 72110; 73502

== ENCOUNTER → 2024-10-11 08:19 | Outpatient (BNV) | payer MEDICAID, SELFPAY | PROVIDERS: PCP Pediatrics; Visit Provider Radiology Diagnostic Radiology | DX: M54.50 Low back pain, unspecified (principal); M53.3 Sacrococcygeal disorders, not elsewhere classified | CPT/HCPCS: 72110; 73502 ==